=== PATIENT | male | born 1950 | race Caucasian/White ===

== ENCOUNTER 2017-03-21 18:01 | Emergency (ER) | payer OTHER, BC ==
[~2017-03-21] VITALS: Ht 180.3 cm; Wt 101.6 kg
[2017-03-21 20:39] VITALS: BP 126/72
== END 2017-03-21 20:39 | disposition home or self-care (01) ==
LOC: ED 18:01
DX: M47.897 Other spondylosis, lumbosacral region (principal); I10 Essential (primary) hypertension; E11.9 Type 2 diabetes mellitus without complications; J44.9 Chronic obstructive pulmonary disease, unspecified; Z88.5 Allergy status to narcotic agent; Z88.8 Allergy status to other drugs, medicaments and biological substances
CPT/HCPCS: J1885